=== PATIENT | female | born 1975 | race Asian ===

== ENCOUNTER 2022-12-12 16:16 | Emergency (ER) | payer MEDICAID ==
[~2022-12-12] VITALS: Ht 149.9 cm; Wt 72.7 kg
[2022-12-12 16:28] VITALS: TEMP 98
[2022-12-12] MEDS ORDERED: HYDR25TA PO (16:31)
[2022-12-12] MEDS ORDERED: FERR-72 PO (16:31)
[2022-12-12] MEDS ORDERED: HYDR25TA2 PO (16:31)
[2022-12-12] MEDS ORDERED: IRBE150T24 PO (16:31)
[2022-12-12] MEDS ORDERED: ONDANSETRON HCL 4 MG TABLET PO ONE ×2 (17:45→18:30)
[2022-12-12] MEDS ORDERED: MECLIZINE HCL 25 MG TABLET PO ONE (17:45)
[2022-12-12 17:57] LABS: BASOPHILS % (AUTO) 1.1 % (0.0-2.0); EOSINOPHILS % (AUTO) 0.9 % (1.0-6.0); HEMATOCRIT 35.6 % (36-46); HEMOGLOBIN 11.4 g/dL (12.0-16.0); LYMPHOCYTES # (AUTO) 2.1 K/uL (1.0-4.8); LYMPHOCYTES % (AUTO) 21.3 % (22.0-44.0); MEAN CORPUSCULAR HEMOGLOBIN 26.2 pg (26.0-34.0); MEAN CORPUSCULAR VOLUME 82 fL (80-100); MONOCYTES # (AUTO) 0.6 K/uL (0.1-1.0); NEUTROPHILS # (AUTO) 6.9 K/uL (1.8-7.7); NEUTROPHILS % (AUTO) 70.7 % (40.0-70.0); PLATELET COUNT (AUTO) 362 K/uL (150-450); RED BLOOD CELL COUNT(AUTO) 4.35 MIL/uL (4.00-5.20)
[2022-12-12 18:04] LABS: ANION GAP 10 mmol/L (8-16); CALCIUM, TOTAL 9.5 mg/dL (8.8-10.5); CARBON DIOXIDE 29 mmol/L (22-29); CHLORIDE 96 mmol/L (98-107); CREATININE 0.89 mg/dL (0.60-1.30); GLOMERULAR FILTR. RATE CALC > 60 mL/min (>60); GLUCOSE,RANDOM 100 mg/dL (70-110); POTASSIUM 3.4 mmol/L (3.5-5.1); SODIUM SERUM 135 mmol/L (136-145)
[2022-12-12 18:09] LABS: PROTHROMBIN TIME 10.5 SEC (9.4-11.6)
[2022-12-12 18:10] LABS: ALANINE AMINOTRANSFERASE 10 U/L (12-78); ALBUMIN 3.5 g/dL (3.4-5.0); ALKALINE PHOSPHATASE 83 U/L (46-116); ASPARTATE AMINOTRANSFERASE 12 U/L (15-37); BILIRUBIN,TOTAL 0.3 mg/dL (0.1-1.0); TOTAL PROTEIN, SERUM 8.2 g/dL (6.4-8.2)
[2022-12-12 18:14] LABS: B-TYPE NATRIURETIC PEPTIDE 37 pg/mL (0-100)
[2022-12-12 19:50] VITALS: BP 127/83; PULSE 71; RESP 18
[2022-12-12] MEDS ORDERED: MECL-134 PO (19:59)
[2022-12-12] MEDS ORDERED: ONDA-104 PO (19:59)
== END 2022-12-12 20:11 | disposition home or self-care (01) ==
LOC: EMS 16:17
DX: H93.11 Tinnitus, right ear (principal); R42 Dizziness and giddiness; I10 Essential (primary) hypertension; Z98.890 Other specified postprocedural states
CPT/HCPCS: 99285; 71045; 80053; 83880; 84484; 85025; 85610; 85730; 93005; Q0162